=== PATIENT | female | born 1950 | race Caucasian/White ===

== ENCOUNTER 2017-06-03 23:54 | Inpatient (IN) | payer OTHER ==
[~2017-06-03] VITALS: Ht 167.6 cm; Wt 98.4 kg
--- NOTE | ~2017-06-03 | HC ---
[facility] [place] [address] CONSULTATION Name: REENA SPAIN Room #: 243-P ADM IN M.R.#: [id number] Admission: 06/04/17 Attend Phys: Josh Elizondo MD Discharge: Date of : 46 Report #: [id number] THIS REPORT FOR: //name// CC: Wil Ann DATE OF SERVICE: 06/04/2017 HISTORY OF PRESENT ILLNESS: This is a 66-year-old female patient who is unable to provide any history because the patient is comatose. Neurology consultation was requested to prognosticate the patient after a cardiopulmonary arrest. Notes were reviewed and the patient's daughter was interviewed. The patient lives by herself. 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 She had a cardiopulmonary arrest and she has been admitted after that. Looks like it was prolonged resuscitation, but the patient was ultimately resuscitated. REVIEW OF SYSTEMS: Indicate that this patient's family indicate that she has some complex carotid disease. They do not know what it is. She follows up with the vascular surgeon at [facility], Dr. Fermin. They have done some bypass and they were thinking of presenting it in some medical conference. That is all the history is from the family. Presently, she is on hypothermia protocol. She has a prior history of breast cancer as well as carotid disease. She also has a prior history of a benign tumor resection. She never developed any seizures or any marked complications from that and that was a long time ago. That was her relevant 14-point review of systems. PAST MEDICAL HISTORY: Positive for resection of a brain tumor and some carotid disease, but she was fairly functional before this cardiopulmonary arrest. FAMILY HISTORY: Negative for early age stroke. SOCIAL HISTORY: She was living independently, but she does have a daughter and I talked to the patient's daughter. PHYSICAL EXAMINATION: Is pretty limited. She is having what looked like respiratory difficulties. She is on the vent. Nurses are going to address that with Pulmonary, but she is not having any response to neurological stimulation with verbal or painful stimuli. Her pupils are midpoint and it is difficult to tell about the reaction. There are no reflexes. She is otherwise reasonably well-built individual. Her blood pressure is maintained at 131/99, pulse rate is 97, and temperature is 95.9 because she is on the cooling protocol at the moment. Cardiac examinations appear unremarkable. There does not appear to be any edema. LABORATORY DATA: Indicate a WBC count of 21.4. She did have a CT scan of the [address] [address] CONSULTATION Name: REENA SPAIN Room #: 243-P [facility] IN .R.#: [id number] Admission: 06/04/17 Attend Phys: Josh Elizondo MD Discharge: Date of : 46 Report #: [id number], which was reviewed and that does not show any acute changes or edema yet. IMPRESSION: The patient had a cardiopulmonary arrest. We need to see if the patient suffered any hypoxia to the brain and if it is reversible or irreversible. I discussed the process with the family and told them it will be a long process requiring at least a week or so depending upon how her response is. They understand that. RECOMMENDATIONS 1. I will go ahead and do an EEG on this patient. 2. She already had a CT scan of the head. 3. Our prognostication will be over a period of time for 7-10 days, but she is having a little involuntary movements. I will go ahead and do an EEG just to make sure there is no seizure activity. Thank you very much for this referral and we will follow this patient along with you. <ELECTRONICALLY SIGNED> By: Tomas Robles MD 06/08/17 0731 1032 [id number] Tomas Robles MD /nt
--- NOTE | ~2017-06-03 | 2DMMODE ---
[facility] [place] [address] 2 D/M-MODE ECHOCARDIOGRAM Name: REENA SPAIN Room #: 243-P ADM IN M.R.#: [id number] Admission: 06/04/17 Attend Phys: Wil Elaine, Discharge: Date of : 46 Date of Service: 06/04/17 1142 Report #: [id number] THIS REPORT FOR: //name// APPROVED REPORT Study performed: 06/04/2017 10:42:30 EXAM: Comprehensive 2D, Doppler, and color-flow Echocardiogram Patient Location: ICU Room #: 243 Status: on-call BSA: 2.04 HR: 95 bpm BP: 90/71 mmHg Other Information Study Quality: PoorFair Technically limited study due to body habitus, patient on ventilator, inability to position patient. Indications S^P cardiac arrest Volumes Left Atrial Volume (Systole) Single Plane 4CH: 61.24 mL Single Plane 2CH: 52.36 mL LA ESV Index: 31.00 mL/m2 Aortic Valve AoV Peak Johnny.: 1.69 m/s AO Peak Gr.: 11.45 mmHg LVOT Max P.18 mmHg LVOT Max V: 1.14 m/s AI Vmax: 2.62 m/s AI [place]: 1.47 m/s2 AI PHT: 516.85 ms Mitral Valve MV Peak Gr.: 18.08 mmHg MV Mean Gr.: 12.70 mmHg E/A Ratio: 0.9 MV Decel. Time: 390.11 ms MV E Max Johnny.: 1.68 m/s MV A Johnny.: 1.81 m/s MV Max Johnny.: 2.13 m/s MV Mean Johnny.: 1.73 m/s MV VTI: 527.60 mm [facility] [place] [place] [address] 2 D/M-MODE ECHOCARDIOGRAM Name: GRABIELREENA Devendra Room #: 243-P [facility] IN M.R.#: [id number] Admission: 06/04/17 Attend Phys: Wil Elaine, Discharge: Date of : 46 Date of Service: 06/04/17 1142 Report #: [id number] PHT: 113.13 ms MVA (PHT): 2.60 cm2 IVRT: 87.66 ms Left Ventricle The left ventricle is normal size. There is normal left ventricular wall thickness. The left ventricular systolic function is normal. The left ventricular ejection fraction is within the normal range. LVEF is 55%. Grade II - pseudonormal filling dynamics. Right Ventricle The right ventricle is normal size. The right ventricular systolic function is normal. Atria The left atrium size is normal. The right atrium size is normal. Aortic Valve Aortic valve is not well visualized. Aortic valve is calcified. Mild aortic regurgitation. There is no aortic valvular stenosis. Mitral Valve The mitral valve is normal in structure. There is mitral annular calcification. Mitral valve leaflets are calcified. Mild mitral regurgitation. Tricuspid Valve Tricuspid valve is not well visualized. There is no tricuspid valve regurgitation noted. Pulmonic Valve Pulmonic valve is not well visualized. There is no pulmonic valvular regurgitation. Great Vessels The aortic root is normal in size. IVC is not well visualized. Pericardium There is no pericardial effusion. <Conclusion> The left ventricle is normal size. The left ventricular systolic function is normal. Grade II - pseudonormal filling dynamics. [facility] [address] [place] [address] 2 D/M-MODE ECHOCARDIOGRAM Name: DIONNA SPAINNINA Ramsay Room #: 243-P [facility] IN .R.#: [id number] Admission: 06/04/17 Attend Phys: Wil Elaine, Discharge: Date of : 46 Date of Service: 06/04/17 1142 Report #: [id number] The right ventricle is normal size. The left atrium size is normal. The right atrium size is normal. Mild aortic regurgitation. Mild mitral regurgitation. There is no pericardial effusion. <ELECTRONICALLY SIGNED> By: Max Roberts MD 06/04/17 1142 1142 1142 Max Roberts MD /INF
--- NOTE | ~2017-06-03 | HC ---
[facility] [place] [address] CONSULTATION Name: REENA SPAIN Room #: 243-P ADM IN M.R.#: [id number] Admission: 06/04/17 Attend Phys: Wil Elaine DO Discharge: Date of : 46 Report #: [id number] THIS REPORT FOR: //name// CC: Wil Ann DATE OF SERVICE: 06/04/2017 CARDIOLOGY CONSULTATION INDICATION: Csu-wv-yueauswu arrest. HISTORY OF PRESENT ILLNESS: This is a 66-year-old female with a history of hypertension, carotid disease, breast cancer and osteoarthritis, who apparently had an uyj-wa-liflifaw arrest. The patient is intubated and the history is obtained from her medical records and family members. The patient called 911 with complaints of difficulty breathing. Upon EMS arrival, she was found unresponsive. CPR was initiated, however, they were unable to intubate the patient out on the field. She presented to the ER at [facility] for treatment, undergoing intubation and continuation of CPR. There was a report of bradycardia/asystole, managed with epinephrine, bicarbonate and Levophed for hypotension. She was transferred to [facility] ICU for further treatment. She has been stable overnight in regards to her blood pressure, not requiring any pressors. Neurologically, she is not showing any signs of conscious activity. The troponin level is 0.79 and the ECG reveals sinus rhythm with no acute ST-segment changes. PAST MEDICAL HISTORY: Hypertension; carotid disease; breast cancer, status post right mastectomy; osteoarthritis and tobacco use. ALLERGIES: Unknown. MEDICATIONS: Please see the MAR for full details. SOCIAL HISTORY: Positive tobacco use. FAMILY HISTORY: Unknown. REVIEW OF SYSTEMS: Unobtainable. PHYSICAL EXAMINATION: VITAL SIGNS: Blood pressure is 130/80, heart rate is 95 beats per minute. GENERAL APPEARANCE: This is an overweight female, intubated, unresponsive. HEAD AND EYES: Normocephalic. ET tube in place. NECK: No JVD. LUNGS: Diminished breath sounds at the bases. [facility] [address] [place] [address] CONSULTATION Name: GRABIELREENA Devendra Room #: [facility]- ADM IN M.R.#: [id number] Admission: 06/04/17 Attend Phys: Wil Elaine DO Discharge: Date of : 48 Report #: [id number] CARDIAC: S1, S2 positive. Distant heart sounds. ABDOMEN: Protuberant, soft, nontender. EXTREMITIES: No major joint deformities. No edema. DIAGNOSTIC DATA: ECG reveals sinus rhythm, PVC, nonspecific ST-segment abnormalities. LABORATORY DATA: Peak troponin is 0.79. White count is 21.4, hemoglobin 15.6. Sodium is 147, creatinine is 1.0. ASSESSMENT AND PLAN: 1. Bzw-ko-wbgzvpwp cardiac/pulmonary arrest. Presently intubated and she remains hemodynamically stable. Manage with hypothermia protocol. We will continue full ICU support. We will probably require a neurologic evaluation in regards to encephalopathy. 2. Respiratory failure, presently intubated. As per Pulmonary. 3. Minimal troponin elevation, probably related to hypoxia from recent CPR. The ECG does not show any acute ST-segment changes. Consider cardiac evaluation once her neurologic status has been stabilized. We will need an echo to assess LV systolic function. 4. Leukocytosis, rule out infectious process. 5. Hypertension, stable blood pressure at this time. <ELECTRONICALLY SIGNED> By: Max Roberts MD 06/04/17 1404 1008 1221 Max Roberts MD /nt
--- NOTE | ~2017-06-03 | P ---
[facility] [place] [address] PROCEDURE REPORT Name: REENA SPAIN Room #: 243-P [facility] IN M.R.#: [id number] Admission: 06/04/17 Attend Phys: Josh Elizondo MD Discharge: Date of : 46 Report #: [id number] THIS REPORT FOR: //name// CC: Wil Ann DATE OF SERVICE: 06/04/2017 PROCEDURE: Right subclavian triple-lumen catheter insertion. INDICATION: Status post arrest, need for hypothermia protocol, good intravenous access. PROCEDURE NOTATION: After discussing risks, benefits of planned procedure with the sister who is at the bedside earlier this morning and agreed to proceed. After obtaining informed consent, the patient was placed in optimal position. Right subclavian site was chosen, was cleansed with 2% chlorhexidine gluconate using maximal barrier method including full body eye sheet, hat, gown, mask, glove and using sterile technique. The patient received 4 mL of local lidocaine to the right clavicular area for planned insertion site. Then, using an infraclavicular approach, the introducer needle was advanced to the proximal bend in the clavicle until venous blood flow was noted. J-wire was advanced. Some difficulty advancing wire, which likely was going up into the internal jugular was noted. The needle was repositioned, and the J wire reinserted until ectopy noted on the monitor. Needle was removed and after a small skin citlalli, a dilator was advanced over the wire and then a triple lumen catheter inserted to 18 cm using Seldinger technique. All lines flushed and aspirated easily. This was sutured in place with 3-0 silk and covered with a Biopatch and OpSite. Chest x-ray confirmed good position with no pneumothorax. <ELECTRONICALLY SIGNED> By: Abraham Kraft MD 06/08/17 1823 0805 1107 Abraham Kraft MD /nt
--- NOTE | ~2017-06-03 | EKG ---
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1950 Requested By: Max Roberts Order Number: [id number] MD: Max Roberts Measurements Intervals [place] Rate: 113 P: 33 AR: 176 QRS: 42 QRSD: 91 T: 116 QT: 365 QTc: 501 Interpretive Statements Sinus tachycardia Ventricular premature complex Nonspecific T abnrm, anterolateral leads Borderline prolonged QT interval Baseline wander in lead(s) II No previous ECG available for comparison Electronically Signed On 06-04-2017 11:25:14 ANALYSIS DIRECTOR by Max Roberts [email or web address] <ELECTRONICALLY SIGNED> By: Max Roberts MD 06/04/17 1125 D: 01229 9 Max Roberts MD /LUIS
--- NOTE | ~2017-06-03 | HC ---
[facility] [place] [address] CONSULTATION Name: REENA SPAIN Devendra Room #: 243-P [facility] IN M.R.#: [id number] Admission: 06/04/17 Attend Phys: Josh Elizondo MD Discharge: 06/15/17 Date of : 46 Report #: [id number] THIS REPORT FOR: //name// CC: Wil Ann DATE OF SERVICE: 06/05/2017 REASON FOR CONSULTATION: Drop in urine output. HISTORY OF PRESENT ILLNESS: This is a 66-year-old female who presented about 40 hours ago to [facility]. She called EMS with dyspnea. She presented with apparent cardiorespiratory arrest. She was resuscitated, intubated, and transferred here to [facility]. She has been placed on hypothermia protocol that ended earlier this morning. She has now been rewarmed. Her vent is being managed Pulmonary. She has been seen by Cardiology. Hemodynamically, blood pressure is fairly good through much of the day yesterday, then she had some transient hypotension overnight with blood pressures in the 80s systolic. She improved again after that but then dropped again this morning with blood pressures again in the 80-90 range. Since that time, her blood pressures again been better running in the 100-110s systolic. Heart rates have been in the 80s. She is oxygenating well in the 97-100% range and that is on an FIO2 of 0.4. In reviewing her renal labs, she presented with a creatinine level of 1.3, but within 4-1/2 hours, it was down to 1.0 and by this morning, it was down to 0.7. She recorded 1.1 liters of urine output yesterday. She has been hypernatremic with serum sodium 147 to 148. Since admission, her potassium was 3.7. On admission, it dropped down to 2.7 this morning. Her bicarbonate is 26, BUN is 12, creatinine 0.7, glucose has been high in the 230-250 range. She has a daughter here at the bedside, but the daughter knows little about her medical history. I gather from the daughter that she has been a long-term smoker. She is unaware what chronic medicine she takes. She does have a history of previous breast cancer with the right mastectomy. She also has had previous carotid artery procedure. CURRENT MEDICATIONS: Include some normal saline at 100 per hour. She has been on meropenem, azithromycin. She has received some electrolyte replacement. She is on some propofol. Also, some pantoprazole and enoxaparin. FAMILY HISTORY: Unavailable. SOCIAL HISTORY: The patient is single, lives in [place], [place]. 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 She has been a long-term heavy smoker. [address] [address] CONSULTATION Name: REENA SPAIN Devendra Room #: 243-P [facility] IN .R.#: [id number] Admission: 06/04/17 Attend Phys: Josh Elizondo MD Discharge: 06/15/17 Date of : 46 Report #: [id number] She lives independently. REVIEW OF SYSTEMS: Unavailable. PHYSICAL EXAMINATION: GENERAL: A 66-year-old female seen in the Intensive Care Unit. She is orally intubated. She has been rewarmed. VITAL SIGNS: Blood pressure 117/61, heart rate is 89, respiratory rate 20, oxygen saturation 97%. HEENT: Shows 2 mm pupils sluggish. Sclerae are nonicteric. She is orally intubated. NECK: Shows no JVD. CHEST: Shows coarse breath sounds bilaterally. CARDIOVASCULAR: Heart has a regular rate and rhythm. ABDOMEN: Somewhat protuberant. Bowel sounds are diminished. I cannot palpate organomegaly or masses. EXTREMITIES: Show warm peripheral extremities, diminished peripheral pulses. She has no edema. NEUROLOGIC: She seems to be having some posturing. LABORATORY DATA: Sodium 147, potassium 2.7, chloride 111, bicarbonate 26, BUN 12, creatinine 0.7, glucose 230, calcium 7.9, phosphorus 2.2, magnesium 1.9, lactate 3.4 and last check troponin 0.48. White count 16.6, hemoglobin 13.2, hematocrit 40.3, platelets 206,000. Differential on the white count, 89% segs, 7 lymphs, 3 monocytes. No urinalysis done. Most recent blood gas pH 7.35, pCO2 of 43.7, pO2 of 78.9. ASSESSMENT: 1. Out of the hospital cardiorespiratory arrest. Hemodynamically, she has had transient hypotension. Rhythm has remained normal. She is oxygenating adequately on the vent. She had some post-resuscitation pulmonary edema on chest x-ray, but that pattern is actually improving today. She is oxygenating only 40% FiO2. 2. Decreasing urine output. She was not oliguric yesterday. She has had some decreased today, but she has had a couple of episodes of hypotension overnight. She has normal renal function with creatinine level of 0.7. The urine output should improve with an additional fluid challenge. 3. Hypernatremia, mild. Once her glucose corrects that will be a bit more severe. I will change her over to hypotonic IV fluid with some half normal saline. 4. Hypokalemia, has been rechecked. She will probably need additional potassium replacement. 5. Past history of breast cancer. 6. Unknown neurologic status. [facility] [address] [place] [address] CONSULTATION Name: REENA PSAIN Devendra Room #: 243-P [facility] IN M.R.#: [id number] Admission: 06/04/17 Attend Phys: Josh Elizondo MD Discharge: 06/15/17 Date of : 46 Report #: [id number] PLAN: 1. We will give her a couple of hours of 250 of normal saline to give her a volume challenge. 2. We will change her over to half normal saline as her IV fluids to help her with hypernatremia. 3. Recheck electrolytes and replace potassium as needed. 4. If she continues to drop urine output, we will give her a bolus of Lasix. 5. Overall, she has excellent renal function. <ELECTRONICALLY SIGNED> By: Eleno Chen MD 06/20/17 1828 1450 2215 Eleno Chen MD /nt
--- NOTE | ~2017-06-03 | EEG ---
[facility] [place] [address] ELECTROENCEPHALOGRAM Name: REENA SPAIN Room #: 243-P [facility] IN M.R.#: [id number] Admission: 06/04/17 Attend Phys: Josh Elizondo MD Discharge: 06/15/17 Date of : 46 Report #: [id number] THIS REPORT FOR: //name// CC: Josh Ann DATE OF SERVICE: 06/08/2017 This patient is post-code. EEG is being done to further evaluate that. Background activity appeared to be about 5-6 Hz and 5-10 microvolt. It is a low voltage activity. Photic stimulation is unremarkable. No active epileptiform activity was noticed. IMPRESSION: This patient's EEG demonstrate finding consistent with significant amount of encephalopathy. Thank you very much for this referral. <ELECTRONICALLY SIGNED> By: Tomas Robles MD 06/22/172010 1731 12 Tomas Robles MD /nt
--- NOTE | ~2017-06-03 | EEG ---
[facility] [place] [address] ELECTROENCEPHALOGRAM Name: REENA SPAIN Room #: 243-P ADM IN M.R.#: [id number] Admission: 06/04/17 Attend Phys: Josh Elizondo MD Discharge: Date of : 46 Report #: [id number] THIS REPORT FOR: //name// CC: Wil Ann DATE OF SERVICE: 06/05/2017 This patient is a post-code patient. EEG was done to further evaluate that. This patient's EEG demonstrate what appeared to be burst of activity, but in between the EEG is not flat as typically is with a burst suppression pattern. Photic stimulation was unremarkable. IMPRESSION: This patient's EEG demonstrate findings suggestive of, but not entirely typical of burst suppression pattern. Clinical correlation is recommended. Thank you very much for this referral. <ELECTRONICALLY SIGNED> By: Tomas Robles MD 06/08/17 0732 0621 0628 Tomas Robles MD /nt
--- NOTE | ~2017-06-03 | HC ---
[facility] [place] [address] CONSULTATION Name: REENA SPAIN Room #: 243-P ADM IN M.R.#: [id number] Admission: 06/04/17 Attend Phys: Josh Elizondo MD Discharge: Date of : 46 Report #: [id number] THIS REPORT FOR: //name// CC: Wil Ann DATE OF SERVICE: 06/04/2017 REFERRING PROVIDER: Graciela Cullen. REASON FOR CONSULTATION: Respiratory failure. CHIEF COMPLAINT: Shortness of breath and altered mental status. HISTORY OF PRESENT ILLNESS: Our group was asked emergently this morning to see the patient earlier today. Sister was at bedside, gave some history but really no medical knowledge of the patient's history. It was very limited. Review of records was also limited. It was available from [facility]. The patient has not had any prior admissions. The patient does have a known history of tobacco use, prior history of breast cancer, prior history of right-sided craniotomy for removal of a benign lesion and prior history of vascular disease including need for carotid artery endarterectomy. Was apparently interactive throughout the day, in fact worked earlier in the day, but became less responsive. EMS arrived after the patient called 911 and was found to be poorly responsive, initially taken to the Emergency Room at [facility], subsequently intubated, was found to be profoundly acidotic and subsequently transferred here. Extended workup there was very limited. It included EKG, which was not revealing and a chest x-ray. Once here, the patient was noted to have some coffee-ground colored material coming from her gastric tube that had been placed. Currently sedated on the ventilator, undergoing hypothermia protocol. ALLERGIES: Possibly TAPE. PAST MEDICAL HISTORY: 1. History of breast cancer status post right mastectomy. 2. History of carotid endarterectomy. 3. Hypertension. 4. Tobacco abuse. 5. 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 SOCIAL HISTORY: Active smoker, otherwise unobtainable. FAMILY HISTORY: Unobtainable. REVIEW OF SYSTEMS: Otherwise unobtainable. [facility] [address] [place] [address] CONSULTATION Name: REENA SPAIN Devendra Room #: 243-P [facility] IN .R.#: [id number] Admission: 06/04/17 Attend Phys: Josh Elizondo MD Discharge: Date of : 46 Report #: [id number] PHYSICAL EXAMINATION: VITAL SIGNS: Hypothermic, pulse 90s and regular, respiratory rate 20, blood pressure 130/99. GENERAL: This is an obese, elderly woman, nonresponsive, moving all extremities at this time. ENT: Endotracheal tube in place. NECK: Supple. LUNGS: Coarse throughout. CARDIOVASCULAR: Heart was regular. No murmurs appreciated. ABDOMEN: Soft, obese, nontender, no masses noted. EXTREMITIES: Cool distally with 1+ pulses and some lower extremity edema noted. LABORATORY DATA: White blood cell count is 21,000, hemoglobin 16, hematocrit 48, platelet count was 328, 3% band forms. Sodium was 147, potassium 3.9, chloride 110, bicarbonate 29, BUN 13, creatinine 1.0, glucose 174. Troponin was 0.79. Most recent arterial blood gas revealed pH of 7.26, pCO2 of 61, pO2 of 257, bicarbonate 27, lactate was 3.38. Chest x-ray revealed good positioning of the right subclavian catheter. There is some cardiac enlargement appreciated. Vascular congestion noted suggestive of pulmonary edema. IMPRESSION: 1. Acute respiratory failure of unclear etiology. Would consider cardiac causes as well as pulmonary embolism. Possibility of an infectious process should also be considered given the leukocytosis. 2. Altered mental status. 3. Non-ST elevation myocardial infarction with elevated troponin. 4. Status post cardiopulmonary arrest requiring CPR. SUGGEST: 1. Hypothermia protocol. 2. Bronchodilators. 3. Broad-spectrum antimicrobials. 4. Evaluate for possible PE, could consider CT chest, however, the patient may go for cardiac catheterization. Would try to avoid high volumes of intravenous contrast. 5. Lower extremity venous Dopplers. 6. Echocardiogram. 7. Await cultures. 8. Correct electrolytes. 9. [place] [address] CONSULTATION Name: REENA SPAIN Room #: 243-P [facility] IN M.R.#: [id number] Admission: 06/04/17 Attend Phys: Josh Elizondo MD Discharge: Date of : 46 Report #: [id number] Total critical care time 60 minutes, not including procedures. This was discussed with the sister at the bedside this morning and nursing. <ELECTRONICALLY SIGNED> By: Abraham Kraft MD 06/08/17 1823 0811 1112 Abraham Kraft MD /nt
--- NOTE | ~2017-06-03 | EEG ---
[facility] [place] [address] ELECTROENCEPHALOGRAM Name: REENA SPAIN Room #: 243-P DIS IN M.R.#: [id number] Admission: 06/04/17 Attend Phys: Josh Elizondo MD Discharge: 06/15/17 Date of : 46 Report #: [id number] THIS REPORT FOR: //name// CC: Josh Ann DATE OF SERVICE: 06/10/2017 This patient is post-code blue. EEG was done for comparison. The background activity is very low voltage now. I think it is about 5-6 Hz and less than 10 microvolts. Photic stimulation is unremarkable. IMPRESSION: This is a severely abnormal EEG, which will be consistent with a diagnosis of encephalopathy. Clinical correlation is recommended. Thank you very much for this referral. <ELECTRONICALLY SIGNED> By: Tomas Robles MD 06/22/172010 1921 01 Tomas Robles MD /nt
--- NOTE | ~2017-06-03 | EEG ---
[facility] [place] [address] ELECTROENCEPHALOGRAM Name: REENA SPAIN Room #: 243-P DIS IN M.R.#: [id number] Admission: 06/04/17 Attend Phys: Josh Elizondo MD Discharge: 06/15/17 Date of : 46 Report #: [id number] THIS REPORT FOR: //name// CC: Josh Ann DATE OF SERVICE: 06/12/2017 This patient is being evaluated as a post-code because she started having some tremor on the right side. EEG is very low voltage. Background activity is probably about 5-6 Hertz but less than 10 microvolts. No active epileptiform activity was noticed. Photic stimulation was unremarkable. IMPRESSION: This is an abnormal EEG because it is a very poorly formed and very low amplitude, that will be consistent with encephalopathy. No active epileptiform activity was noticed during this record. Thank you very much for this referral. <ELECTRONICALLY SIGNED> By: Tomas Robles MD 06/22/172010 1218 1243 Tomas Robles MD /nt
[2017-06-04] VITALS (84 sets, daily range): BP systolic 60–188; BP diastolic 26–108
[2017-06-04 00:27] LABS: HCO3 26.5 mmol/L (22.0-26.0); PCO2 60.8 mmHg (35.0-45.0); PO2 257.1 mmHg (80.0-100.0); sO2 99.5 % (92.0-98.0)
[2017-06-04 00:28] LABS: pH 7.258 (7.360-7.450)
[2017-06-04 02:04] LABS: D-DIMER 14.66 ug/mLFEU (0.19-0.50)
[2017-06-04 02:31] LABS: HEMATOCRIT 48.3 % (37.0-47.0); HEMOGLOBIN 15.6 gm/dL (12.0-15.0); MCHC 32.4 g/dL (28.0-37.0); MCV 89.8 fL (80.0-100.0); PLATELET COUNT 328 thou/uL (150-400); RBC 5.38 mil/uL (4.20-5.00); RDW 14.2 % (10.5-14.5); WBC 21.4 thou/uL (4.0-11.0)
[2017-06-04 02:36] LABS: APTT 26.6 Seconds (24.5-32.8); PROTIME 10.1 Seconds (9.3-11.4)
[2017-06-04 02:39] LABS: POTASSIUM 3.7 mmol/L (3.5-5.1)
[2017-06-04 02:41] LABS: CALCIUM 8.4 mg/dL (8.5-10.1); CREATININE 1.3 mg/dL (0.6-1.0); MAGNESIUM 2.3 mg/dL (1.8-2.4)
[2017-06-04 03:03] LABS: PHOSPHORUS 5.4 mg/dL (2.5-4.9); TROPONIN-I 0.36 ng/mL (<0.06)
[2017-06-04 05:00] LABS: ABSOLUTE NEUTROPHILS 18.6 thou/uL (1.4-8.2)
[2017-06-04 06:42] LABS: CALCIUM 7.6 mg/dL (8.5-10.1); POTASSIUM 3.9 mmol/L (3.5-5.1)
[2017-06-04 06:44] LABS: TROPONIN-I 0.79 ng/mL (<0.06)
[2017-06-04 12:45] LABS: BE(vivo) -4.5 mmol/L (-2 to +3); HCO3 21.5 mmol/L (22.0-26.0); PCO2 42.8 mmHg (35.0-45.0); PO2 89.7 mmHg (80.0-100.0); sO2 96.2 % (92.0-98.0)
[2017-06-04 12:46] LABS: pH 7.318 (7.360-7.450)
[2017-06-04 13:13] LABS: ABSOLUTE NEUTROPHILS 16.2 thou/uL (1.4-8.2); BASOPHILS 0.1 % (0.0-2.0); HEMATOCRIT 41.6 % (37.0-47.0); HEMOGLOBIN 13.6 gm/dL (12.0-15.0); LYMPHOCYTES 4.5 % (24.0-44.0); MCH 28.9 pg (26.0-34.0); MCHC 32.8 g/dL (28.0-37.0); MCV 88.1 fL (80.0-100.0); MONOCYTES 2.9 % (1.0-8.0); POLYS 92.5 % (36.0-66.0); RBC 4.72 mil/uL (4.20-5.00); WBC 17.5 thou/uL (4.0-11.0)
[2017-06-04 13:21] LABS: PLATELET COUNT 240 thou/uL (150-400)
[2017-06-04 13:25] LABS: APTT 29.5 Seconds (24.5-32.8); PROTIME 10.3 Seconds (9.3-11.4)
[2017-06-04 13:32] LABS: CALCIUM 8.1 mg/dL (8.5-10.1); CREATININE 1.1 mg/dL (0.6-1.0); MAGNESIUM 1.9 mg/dL (1.8-2.4); POTASSIUM 3.3 mmol/L (3.5-5.1)
[2017-06-04 13:39] LABS: TROPONIN-I 0.8 ng/mL (<0.06)
[2017-06-04 17:46] LABS: BE(vivo) -2.3 mmol/L (-2 to +3); HCO3 25.2 mmol/L (22.0-26.0); PO2 74.9 mmHg (80.0-100.0); pH 7.287 (7.360-7.450); sO2 93.2 % (92.0-98.0)
[2017-06-04 18:44] LABS: ABSOLUTE NEUTROPHILS 16.9 thou/uL (1.4-8.2); BASOPHILS 0.1 % (0.0-2.0); HEMATOCRIT 42.6 % (37.0-47.0); HEMOGLOBIN 14.1 gm/dL (12.0-15.0); MCH 29.3 pg (26.0-34.0); MCV 88.7 fL (80.0-100.0); MONOCYTES 5.2 % (1.0-8.0); PLATELET COUNT 231 thou/uL (150-400); POLYS 88.7 % (36.0-66.0); RDW 14.4 % (10.5-14.5)
[2017-06-04 19:04] LABS: PROTIME 10.3 Seconds (9.3-11.4)
[2017-06-04 19:05] LABS: CALCIUM 7.8 mg/dL (8.5-10.1); CREATININE 0.9 mg/dL (0.6-1.0); MAGNESIUM 1.9 mg/dL (1.8-2.4); PHOSPHORUS 3.8 mg/dL (2.5-4.9); POTASSIUM 3.3 mmol/L (3.5-5.1); TROPONIN-I 0.54 ng/mL (<0.06)
[2017-06-05] VITALS (70 sets, daily range): BP systolic 69–145; BP diastolic 36–83
[2017-06-05 00:14] LABS: ABSOLUTE NEUTROPHILS 12.3 thou/uL (1.4-8.2); BASOPHILS 0.3 % (0.0-2.0); HEMATOCRIT 40.2 % (37.0-47.0); HEMOGLOBIN 13.3 gm/dL (12.0-15.0); LYMPHOCYTES 7.4 % (24.0-44.0); MONOCYTES 2.7 % (1.0-8.0); PLATELET COUNT 201 thou/uL (150-400); POLYS 89.6 % (36.0-66.0); RBC 4.57 mil/uL (4.20-5.00); RDW 14.3 % (10.5-14.5); WBC 13.7 thou/uL (4.0-11.0)
[2017-06-05 00:27] LABS: APTT 34.3 Seconds (24.5-32.8); PROTIME 10.7 Seconds (9.3-11.4)
[2017-06-05 00:29] LABS: CREATININE 0.7 mg/dL (0.6-1.0); MAGNESIUM 2.1 mg/dL (1.8-2.4); PHOSPHORUS 2.2 mg/dL (2.5-4.9); TROPONIN-I 0.48 ng/mL (<0.06)
[2017-06-05 00:30] LABS: POTASSIUM 2.7 mmol/L (3.5-5.1)
[2017-06-05 05:55] LABS: HEMATOCRIT 40.3 % (37.0-47.0); HEMOGLOBIN 13.2 gm/dL (12.0-15.0); MCH 28.7 pg (26.0-34.0); MCHC 32.7 g/dL (28.0-37.0); MCV 87.8 fL (80.0-100.0); RBC 4.6 mil/uL (4.20-5.00); RDW 14.1 % (10.5-14.5); WBC 16.6 thou/uL (4.0-11.0)
[2017-06-05 06:18] LABS: CALCIUM 7.9 mg/dL (8.5-10.1); CREATININE 0.7 mg/dL (0.6-1.0); MAGNESIUM 1.9 mg/dL (1.8-2.4)
[2017-06-05 06:21] LABS: POTASSIUM 2.7 mmol/L (3.5-5.1)
[2017-06-05 11:28] LABS: BE(vivo) -1.9 mmol/L (-2 to +3); HCO3 23.7 mmol/L (22.0-26.0); PCO2 43.7 mmHg (35.0-45.0); PO2 78.9 mmHg (80.0-100.0); pH 7.353 (7.360-7.450); sO2 95.1 % (92.0-98.0)
[2017-06-06] VITALS (50 sets, daily range): BP systolic 80–152; BP diastolic 39–83
[2017-06-06 08:29] LABS: HEMATOCRIT 35.3 % (37.0-47.0); HEMOGLOBIN 11.7 gm/dL (12.0-15.0); MCH 28.9 pg (26.0-34.0); MCHC 33.2 g/dL (28.0-37.0); MCV 87.1 fL (80.0-100.0); RBC 4.05 mil/uL (4.20-5.00); RDW 14.4 % (10.5-14.5); WBC 23.4 thou/uL (4.0-11.0)
[2017-06-06 08:37] LABS: CALCIUM 8.3 mg/dL (8.5-10.1); CREATININE 0.9 mg/dL (0.6-1.0); POTASSIUM 3.7 mmol/L (3.5-5.1)
[2017-06-06 08:41] LABS: ALBUMIN 2.5 g/dL (3.4-5.0); PHOSPHORUS 2.6 mg/dL (2.5-4.9)
[2017-06-07] VITALS (45 sets, daily range): BP systolic 98–169; BP diastolic 55–110
[2017-06-07 05:09] LABS: ALBUMIN 2.4 g/dL (3.4-5.0); CALCIUM 8.1 mg/dL (8.5-10.1); CREATININE 0.8 mg/dL (0.6-1.0); POTASSIUM 4.4 mmol/L (3.5-5.1); TOTAL BILIRUBIN 0.3 mg/dL (<0.1-1.0); TOTAL PROTEIN 5.6 g/dL (6.4-8.2)
[2017-06-08] VITALS (29 sets, daily range): BP systolic 107–174; BP diastolic 57–129
[2017-06-08 05:20] LABS: HCO3 21.9 mmol/L (22.0-26.0); PCO2 34.5 mmHg (35.0-45.0); PO2 79.2 mmHg (80.0-100.0)
[2017-06-08 05:23] LABS: HEMATOCRIT 34.6 % (37.0-47.0); HEMOGLOBIN 11.3 gm/dL (12.0-15.0); MCH 28.7 pg (26.0-34.0); MCHC 32.8 g/dL (28.0-37.0); MCV 87.6 fL (80.0-100.0); PLATELET COUNT 194 thou/uL (150-400); RBC 3.95 mil/uL (4.20-5.00); RDW 14.3 % (10.5-14.5); WBC 16.1 thou/uL (4.0-11.0)
[2017-06-08 06:55] LABS: ABSOLUTE NEUTROPHILS 13.7 thou/uL (1.4-8.2); PROMYELOCYTES 1 %
[2017-06-08 06:57] LABS: PLATELET ESTIMATE NORMAL
[2017-06-09] VITALS (36 sets, daily range): BP systolic 100–198; BP diastolic 66–142
[2017-06-09 06:00] LABS: HEMATOCRIT 35.5 % (37.0-47.0); HEMOGLOBIN 11.6 gm/dL (12.0-15.0); MCH 28.6 pg (26.0-34.0); MCHC 32.8 g/dL (28.0-37.0); RBC 4.08 mil/uL (4.20-5.00); RDW 13.9 % (10.5-14.5); WBC 16.5 thou/uL (4.0-11.0)
[2017-06-09 06:08] LABS: CALCIUM 8.2 mg/dL (8.5-10.1); CREATININE 0.8 mg/dL (0.6-1.0); POTASSIUM 4.5 mmol/L (3.5-5.1)
[2017-06-10] VITALS (31 sets, daily range): BP systolic 69–137; BP diastolic 35–96
[2017-06-10 23:02] LABS: BE(vivo) 1.8 mmol/L (-2 to +3); HCO3 25.2 mmol/L (22.0-26.0); PCO2 35.4 mmHg (35.0-45.0); PO2 74.6 mmHg (80.0-100.0); sO2 95.9 % (92.0-98.0)
[2017-06-10 23:04] LABS: HEMATOCRIT 37.6 % (37.0-47.0); HEMOGLOBIN 12.6 gm/dL (12.0-15.0); MCH 29.1 pg (26.0-34.0); MCHC 33.5 g/dL (28.0-37.0); MCV 86.9 fL (80.0-100.0); RBC 4.33 mil/uL (4.20-5.00); RDW 14.1 % (10.5-14.5); WBC 19.8 thou/uL (4.0-11.0)
[2017-06-10 23:13] LABS: CALCIUM 8.7 mg/dL (8.5-10.1); CREATININE 0.9 mg/dL (0.6-1.0)
[2017-06-10 23:17] LABS: MAGNESIUM 1.8 mg/dL (1.8-2.4); PHOSPHORUS 3.1 mg/dL (2.5-4.9)
[2017-06-11] VITALS (27 sets, daily range): BP systolic 75–145; BP diastolic 49–95
[2017-06-11 10:27] LABS: URINE BILIRUBIN NEGATIVE (Negative); URINE BLOOD 2+ (Negative); URINE CLARITY CLEAR; URINE COLOR YELLOW; URINE GLUCOSE-RANDOM* NEGATIVE (Negative); URINE KETONES NEGATIVE (Negative); URINE LEUKOCYTES-REFLEX NEGATIVE (Negative); URINE NITRITE-REFLEX NEGATIVE (Negative); URINE PROTEIN (DIPSTICK) TRACE (Negative); URINE SPECIFIC GRAVITY 1.015 (1.005-1.035); URINE UROBILINOGEN 0.2 E.U./dl (0.2-1.0)
[2017-06-11 10:56] LABS: CASTS None Seen /LPF (None Seen); SQUAMOUS 0-3 Few /LPF (0-3)
[2017-06-11 10:57] LABS: MUCUS 0-3 Light strn/LPF (None Seen); URINE RBC 3-10 Few /HPF (0-2); URINE WBC-REFLEX 0-5 Rare /HPF (0-5)
[2017-06-11 10:58] LABS: BACTERIA-REFLEX None Seen /HPF (None Seen); CRYSTALS None Seen /LPF (None Seen)
[2017-06-12] VITALS (102 sets, daily range): BP systolic 65–152; BP diastolic 45–139
[2017-06-12 02:59] LABS: HEMATOCRIT 36.9 % (37.0-47.0); HEMOGLOBIN 12.2 gm/dL (12.0-15.0); MCH 28.8 pg (26.0-34.0); MCV 87.3 fL (80.0-100.0); PLATELET COUNT 226 thou/uL (150-400); RBC 4.23 mil/uL (4.20-5.00); RDW 13.8 % (10.5-14.5); WBC 21.4 thou/uL (4.0-11.0)
[2017-06-12 03:12] LABS: APTT 26.1 Seconds (24.5-32.8); INR 1.1; PROTIME 11.1 Seconds (9.3-11.4)
[2017-06-12 03:16] LABS: ALBUMIN 2.6 g/dL (3.4-5.0); CALCIUM 8.7 mg/dL (8.5-10.1); CREATININE 0.8 mg/dL (0.6-1.0); MAGNESIUM 1.8 mg/dL (1.8-2.4); POTASSIUM 4.1 mmol/L (3.5-5.1); TOTAL BILIRUBIN 0.5 mg/dL (<0.1-1.0); TOTAL PROTEIN 5.8 g/dL (6.4-8.2)
[2017-06-12 04:41] LABS: ABSOLUTE NEUTROPHILS 18.4 thou/uL (1.4-8.2); METAMYELOCYTES 1 %; MYELOCYTES 1 %
[2017-06-12 05:21] LABS: BE(vivo) -0.8 mmol/L (-2 to +3); HCO3 22.1 mmol/L (22.0-26.0); PCO2 31.6 mmHg (35.0-45.0); PO2 92.5 mmHg (80.0-100.0); pH 7.463 (7.360-7.450); sO2 97.5 % (92.0-98.0)
[2017-06-13] VITALS (36 sets, daily range): BP systolic 62–117; BP diastolic 44–88
[2017-06-13 05:35] LABS: HEMATOCRIT 33.9 % (37.0-47.0); HEMOGLOBIN 11.3 gm/dL (12.0-15.0); MCH 29.2 pg (26.0-34.0); MCHC 33.5 g/dL (28.0-37.0); MCV 87.2 fL (80.0-100.0); PLATELET COUNT 191 thou/uL (150-400); RBC 3.88 mil/uL (4.20-5.00); RDW 14.1 % (10.5-14.5); WBC 19.7 thou/uL (4.0-11.0)
[2017-06-13 05:44] LABS: ALBUMIN 2.3 g/dL (3.4-5.0); CALCIUM 8.8 mg/dL (8.5-10.1); CREATININE 0.7 mg/dL (0.6-1.0); TOTAL BILIRUBIN 0.4 mg/dL (<0.1-1.0); TOTAL PROTEIN 5.3 g/dL (6.4-8.2)
[2017-06-13 07:21] LABS: ABSOLUTE NEUTROPHILS 16.9 thou/uL (1.4-8.2); PLATELET ESTIMATE NORMAL
[2017-06-14] VITALS: BP 69/51
[2017-06-14 05:30] VITALS: BP 74/53
[2017-06-14 12:03] VITALS: BP 74/46
[2017-06-14 23:58] VITALS: BP 83/49
[2017-06-15] MEDS ORDERED: SCOPOLAMINE1 EACH TRANSDERM (11:48)
[2017-06-15] MEDS ORDERED: DURAGESIC1 EAC1 TRANSDERM (11:48)
== END 2017-06-15 13:40 | disposition hospice, inpatient (51) | DRG 870 ==
LOC: ICU 23:54
PROVIDERS: Family Medicine; Hospitalist; Internal Medicine; Internal Medicine Pulmonary Disease; Nurse Practitioner Family
PROC: 02HV33Z Insertion of Infusion Device into Superior Vena Cava, Percutaneous Approach (ICD-10-PCS; principal; 2017-06-04)
PROC: 5A1955Z Respiratory Ventilation, Greater than 96 Consecutive Hours (ICD-10-PCS; principal; 2017-06-04)
DX: A41.9 Sepsis, unspecified organism (principal); J96.00 Acute respiratory failure, unspecified whether with hypoxia or hypercapnia; I21.4 Non-ST elevation (NSTEMI) myocardial infarction; E43 Unspecified severe protein-calorie malnutrition; E87.0 Hyperosmolality and hypernatremia; G93.1 Anoxic brain damage, not elsewhere classified; F17.210 Nicotine dependence, cigarettes, uncomplicated; M19.90 Unspecified osteoarthritis, unspecified site; E87.6 Hypokalemia; I50.9 Heart failure, unspecified; R73.9 Hyperglycemia, unspecified; I73.9 Peripheral vascular disease, unspecified; I11.0 Hypertensive heart disease with heart failure; T68.XXXA Hypothermia, initial encounter; K59.00 Constipation, unspecified; D64.9 Anemia, unspecified; Z66 Do not resuscitate; Z51.5 Encounter for palliative care; I95.9 Hypotension, unspecified; Z85.3 Personal history of malignant neoplasm of breast; Z90.11 Acquired absence of right breast and nipple; Z86.74 Personal history of sudden cardiac arrest; Z79.82 Long term (current) use of aspirin; Z79.899 Other long term (current) drug therapy; Z68.35 Body mass index [BMI] 35.0-35.9, adult
CPT/HCPCS: 10078; 85030